=== PATIENT | female | born 1990 | race Caucasian/White ===

== ENCOUNTER 2023-06-23 23:18 | Emergency (ER) | payer MEDICAID ==
[~2023-06-23] VITALS: Ht 172.7 cm; Wt 127.0 kg
[2023-06-23 23:48] VITALS: O2SAT 97
[2023-06-24 00:18] LABS: CLARITY URINE CLOUDY (CLEAR); COLOR URINE YELLOW (YELLOW); GLUCOSE URINE 3+ (NEGATIVE); KETONES URINE NEGATIVE (NEGATIVE); LEUKOCYTE ESTERASE URINE NEGATIVE (NEGATIVE); NITRITE URINE NEGATIVE (NEGATIVE); OCCULT BLOOD URINE NEGATIVE (NEGATIVE); PROTEIN URINE NEGATIVE (NEGATIVE); SPECIFIC GRAVITY URINE 1.043 (1.005-1.030); UROBILINOGEN URINE 0.2 E.U./dL (0.2-1.0)
[2023-06-24] MEDS ORDERED: ACYC200C31 MT (00:41)
[2023-06-24] MEDS ORDERED: IBUPROFEN 600MG TABLET PO ONE (00:45)
[2023-06-24 01:01] VITALS: BP 125/82; PULSE 97; RESP 18
[2023-06-24 02:13] LABS: BACTERIA URINE NONE SEEN; RBC URINE 0-2 /hpf (0-2); SQUAMOUS EPITHELIAL CELL URINE FEW /lpf (RARE/1+); WBC URINE 0-2 /hpf (0-2); YEAST URINE NONE SEEN
== END 2023-06-24 01:03 | disposition home or self-care (01) ==
LOC: ER 23:18
DX: B00.9 Herpesviral infection, unspecified (principal); E11.9 Type 2 diabetes mellitus without complications; I10 Essential (primary) hypertension
CPT/HCPCS: 81003; 81025; 99283; Z7610